=== PATIENT | male | born 1950 | race Caucasian/White ===

== ENCOUNTER 2018-10-28 19:48 | Emergency (ER) | payer OTHER ==
[~2018-10-28] VITALS: Ht 193 cm; Wt 104.3 kg
--- NOTE | ~2018-10-28 | EKG ---
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
[~2018-10-28 19:48] MED LIST: AMARYL2 MG PO; ASPIRIN81 M2 PO; CENTRUM COMPLE1 EACH PO; FEXOFENADINE HC30 MG PO; FLEXERIL PO; GLUCOPHAGE1000 MG PO; IBUPROFEN 800800 M1 PO; LOVASTAT20; NORCO 5-325 TA1 EACH PO; PRINIVIL20 MG PO
[2018-10-28] MEDS ORDERED: LISINOPRIL40 MG PO (20:22)
[2018-10-28] MEDS ORDERED: ZANAFLEX2 MG PO (20:22)
[2018-10-28 20:32] LABS: MCH 24.3 pg (26.0-34.0); PLATELET COUNT 167 thou/uL (150-400)
[2018-10-28 20:34] LABS: HEMATOCRIT 32.1 % (42.0-52.0); HEMOGLOBIN 10.1 gm/dL (14.0-18.0); MCHC 31.4 g/dL (28.0-37.0); MCV 77.5 fL (80.0-100.0); RBC 4.15 mil/uL (4.50-6.00); RDW 17.3 % (10.5-14.5); WBC 3.4 thou/uL (4.0-11.0)
[2018-10-28 20:49] LABS: ANION GAP 12 mmol/L (7-16); BUN 22 mg/dL (7-18); CALCIUM 9.6 mg/dL (8.5-10.1); CHLORIDE 104 mmol/L (98-107); CO2 23 mmol/L (21-32); CREATININE 1.2 mg/dL (0.7-1.3); GLUCOSE 255 mg/dL (74-106); POTASSIUM 3.9 mmol/L (3.5-5.1); SODIUM 139 mmol/L (136-145); TROPONIN-I <0.06 ng/mL (<0.06)
[2018-10-28 21:33] VITALS: BP 112/69
[2018-10-28 22:58] LABS: ABSOLUTE NEUTROPHILS 1.2 thou/uL (1.4-8.2); ATYPICAL LYMPHS 1 %
[2018-10-28 23:04] LABS: ANISOCYTOSIS 2+
[2018-10-28 23:05] LABS: HYPOCHROMASIA 1+; POLYCHROMASIA OCCASIONAL
[2018-10-28 23:06] LABS: LARGE PLATELETS RARE; POIKILOCYTOSIS SLIGHT
== END 2018-10-28 21:34 | disposition home or self-care (01) ==
LOC: ER 19:48
PROVIDERS: Physician Assistant
DX: R55 Syncope and collapse (principal); D61.818 Other pancytopenia; I10 Essential (primary) hypertension; E11.9 Type 2 diabetes mellitus without complications; Z90.49 Acquired absence of other specified parts of digestive tract